=== PATIENT | male | born 1995 | race Caucasian/White ===

== ENCOUNTER 2019-03-25 19:34 | Emergency (ER) | payer OTHER ==
[~2019-03-25] VITALS: Ht 170.2 cm; Wt 68.0 kg
[2019-03-25 20:00] VITALS: BP 120/105
[2019-03-25] MEDS ORDERED: LORazepam Inj 2mg/ml 1ml IV ONE (20:00)
--- NOTE | 2019-03-25 20:00 | NUR ---
ED Nurse Note: Pt brought in by caregiver, per caregiver statement, pt was unresponsive in the back of the car, not sure if pt had seizure, increased lethargy and drowsy. pt currently AA&ox4, gcs=15, but noted drowsiness, pt diaphoretic and pale noted, pt denies using illecit drug but reports he is at sober living for heroin and meth, pt states he took gabapentin 800mg x 4 today around 2 pm. sinus tach and tachypnea noted, will notify ERMD. all safety precautions in place.
[2019-03-25 20:29] LABS: ANION GAP 10 mmol/L (5-15); BLOOD UREA NITROGEN 14 mg/dL (7-18); CALCIUM 9.4 MG/DL (8.5-10.1); CARBON DIOXIDE 28 MMOL/L (21-32); CHLORIDE 103 MMOL/L (98-107); POTASSIUM 4.2 MMOL/L (3.5-5.1); SODIUM 141 MMOL/L (136-145)
[2019-03-25 20:33] LABS: ALANINE AMINOTRANSFERASE 69 U/L (12-78); ALBUMIN 4.8 G/DL (3.4-5.0); ALBUMIN/GLOBULIN RATIO 1.7 (1.0-2.7); ALKALINE PHOSPHATASE 91 U/L (46-116); ASPARTATE AMINO TRANSFERASE 41 U/L (15-37); BILIRUBIN,TOTAL 0.4 MG/DL (0.2-1.0); CREATINE KINASE 160 U/L (26-308)
[2019-03-25 20:34] LABS: BASOPHILS % (AUTO) 0.7 % (0.0-2.0); EOSINOPHILS % (AUTO) 1.3 % (0.0-3.0); HEMOGLOBIN 14.8 G/DL (14.2-18.0); LYMPHOCYTES % (AUTO) 26.5 % (20.0-45.0); MEAN CORPUSCULAR VOLUME 86 FL (80-99); MONOCYTES % (AUTO) 6.4 % (1.0-10.0); NEUTROPHILS % (AUTO) 65.1 % (45.0-75.0); PLATELET COUNT 269 K/UL (150-450); RED BLOOD COUNT 5.02 M/UL (4.70-6.10); RED CELL DISTRIBUTION WIDTH 11.5 % (11.6-14.8); WHITE BLOOD COUNT 13.3 K/UL (4.8-10.8)
[2019-03-25 21:00] VITALS: BP 125/67
--- NOTE | 2019-03-25 21:01 | Emergency Room Report ---
History of Present Illness General Chief Complaint: General Complaint Source: Patient, Caregiver Present Illness HPI The patient was unresponsive in the back of a van. He is in a rehab program. He took 800 mg of gabapentin around 1 PM today. He was not trying to harm himself. He wanted to feel better because he feels bad as he is detoxing from heroin. He is in a rehab facility at this time. The person driving the vehicle question whether he might of had a seizure as he was unresponsive. The patient does not have a history of seizures. There is no incontinence. He had no lingual trauma. No fevers, chills, chest pain, palpitations, nausea, vomiting, diarrhea, dysuria , abdominal pain, shortness of breath, depression, visual changes, headache. Allergies: Coded Allergies: PENICILLINS (Verified Allergy, Unknown, 03/25/19) Patient History Past Medical History: see triage record Social History: Reports: smoking, drug use - Heroin Social History Narrative In rehab Reviewed Nursing Documentation: PMH: Agreed; PSxH: Agreed Review of Systems All Other Systems: negative except mentioned in HPI Physical Exam Vital Signs Date Time Temp Pulse Resp B/P (MAP) Pulse Ox O2 Delivery O2 Flow Rate FiO2 03/25/19 19:50 98.8 140 30 120/105 (110) 100 Room Air Sp02 EP Interpretation: reviewed, normal General Appearance: well appearing, no apparent distress, GCS 15 Head: normocephalic, atraumatic Eyes: bilateral eye PERRL, bilateral eye EOMI, bilateral eye Scleral Injection ENT: moist mucus membranes - No lingual macerations Neck: supple Respiratory: chest non-tender, lungs clear, normal breath sounds Cardiovascular #1: no edema, tachycardia Cardiovascular #2: 2+ radial (R) Gastrointestinal: normal inspection, normal bowel sounds, non tender, no mass, non-distended Musculoskeletal: back normal, gait/station normal, normal range of motion Neurologic: alert, oriented x3, motor strength/tone normal, DTRs symmetric, sensory intact, cerebellar normal, speech normal Psychiatric: no suicidal/homicidal ideation, depressed affect Skin: other - Tattoos Medical Decision Making Diagnostic Impression: Primary Impression: Medication excess Additional Impressions: History of heroin use Transient altered level of consciousness ER Course Patient presents with altered mentation. Differential includes seizure, excess medication, electrolyte imbalance, head trauma, withdrawal seizure amongst others. Evaluation with EKG, chest x-ray, CT of the head and labs. Initially Keppra was ordered however when it was determined the patient had ingested increased amounts of gabapentin this was held. The patient was given a small dose of Ativan. Seizure precautions were obtained. The patient was placed on a cardiac cath lab technologist. EKG without injury. CT of the head no lesions. Chest x-ray no infiltrates or aspiration. Labs with minimal leukocytosis. CMP and tox negative. Would expect bicarb to be low or other abnormal chem if sz. Patient improved with observation. Less tachycardic. Discussed findings with patient. No medical emergency present. Continue gabapentin. Patient stable for outpatient observation and treatment. Laboratory Tests Test 03/25/19 20:00 03/25/19 21:11 White Blood Count 13.3 K/UL (4.8-10.8) H Red Blood Count 5.02 M/UL (4.70-6.10) Hemoglobin 14.8 G/DL (14.2-18.0) Hematocrit 43.0 % (42.0-52.0) Mean Corpuscular Volume 86 FL (80-99) Mean Corpuscular Hemoglobin 29.4 PG (27.0-31.0) Mean Corpuscular Hemoglobin Concent 34.4 G/DL (32.0-36.0) Red Cell Distribution Width 11.5 % (11.6-14.8) L Platelet Count 269 K/UL (150-450) Mean Platelet Volume 6.2 FL (6.5-10.1) L Neutrophils (%) (Auto) 65.1 % (45.0-75.0) Lymphocytes (%) (Auto) 26.5 % (20.0-45.0) Monocytes (%) (Auto) 6.4 % (1.0-10.0) Eosinophils (%) (Auto) 1.3 % (0.0-3.0) Basophils (%) (Auto) 0.7 % (0.0-2.0) Sodium Level 141 MMOL/L (136-145) Potassium Level 4.2 MMOL/L (3.5-5.1) Chloride Level 103 MMOL/L (98-107) Carbon Dioxide Level 28 MMOL/L (21-32) Anion Gap 10 mmol/L (5-15) Blood Urea Nitrogen 14 mg/dL (7-18) Creatinine 1.0 MG/DL (0.55-1.30) Estimate Glomerular Filtration Rate > 60 mL/min (>60) Glucose Level 130 MG/DL (74-106) H Calcium Level 9.4 MG/DL (8.5-10.1) Total Bilirubin 0.4 MG/DL (0.2-1.0) Aspartate Amino Transferase (AST) 41 U/L (15-37) H Alanine Aminotransferase (ALT) 69 U/L (12-78) Alkaline Phosphatase 91 U/L (46-116) Total Creatine Kinase 160 U/L (26-308) Total Protein 7.6 G/DL (6.4-8.2) Albumin 4.8 G/DL (3.4-5.0) Globulin 2.8 g/dL Albumin/Globulin Ratio 1.7 (1.0-2.7) Salicylates Level 1.3 ug/mL (2.8-20) L Acetaminophen Level < 2 MCG/ML (10-30) L Serum Alcohol < 3 mg/dL Urine Color Yellow Urine Appearance Clear Urine pH 8 (4.5-8.0) Urine Specific [place] 1.010 (1.005-1.035) Urine Protein Negative (NEGATIVE) Urine Glucose (UA) Negative (NEGATIVE) Urine Ketones Negative (NEGATIVE) Urine Blood Negative (NEGATIVE) Urine Nitrite Positive (NEGATIVE) H Urine Bilirubin Negative (NEGATIVE) Urine Urobilinogen Normal MG/DL (0.0-1.0) Urine Leukocyte Esterase Negative (NEGATIVE) Urine RBC 0-2 /HPF (0 - 0) H Urine WBC 0-2 /HPF (0 - 0) Urine Squamous Epithelial Cells None /LPF (NONE/OCC) Urine Bacteria Few /HPF (NONE) Urine Opiates Screen Negative (NEGATIVE) Urine Barbiturates Screen Negative (NEGATIVE) Phencyclidine (PCP) Screen Negative (NEGATIVE) Urine Amphetamines Screen Negative (NEGATIVE) Urine Benzodiazepines Screen Negative (NEGATIVE) Urine Cocaine Screen Negative (NEGATIVE) Urine Marijuana (THC) Screen Negative (NEGATIVE) EKG Diagnostic Results Rate: tachycardiac Rhythm: NSR ST Segments: no acute changes Rhythm Strip Diag. Results EP Interpretation: yes Rhythm: no PVC's, no ectopy - Sinus tachycardia Chest X-Ray Diagnostic Results Chest X-Ray Diagnostic Results : Chest X-Ray Ordered: Yes # of Views/Limited/Complete: 1 View Indication: Other EP Interpretation: Yes Interpretation: no consolidation, no effusion, no pneumothorax Impression: No acute disease Electronically Signed by: Electronically signed by Jericho Henry MD CT/MRI/US Diagnostic Results CT/MRI/US Diagnostic Results : Imaging Test Ordered: head Impression no injury Last Vital Signs Date Time Temp Pulse Resp B/P (MAP) Pulse Ox O2 Delivery O2 Flow Rate FiO2 03/25/19 23:18 98.2 98 18 114/76 100 Room Air Status: improved Disposition: HOME, SELF-CARE - Rehab Condition: Improved Jericho Henry MD Mar 25, 2019 21:01
[2019-03-25 21:54] LABS: APPEARANCE,URINE CLEAR; BILIRUBIN, URINE NEGATIVE (NEGATIVE); GLUCOSE, URINE (UA) NEGATIVE (NEGATIVE); KETONES,URINE NEGATIVE (NEGATIVE); LEUKOCYTE ESTERASE ,URINE NEGATIVE (NEGATIVE); NITRITE,URINE POSITIVE (NEGATIVE); PH,URINE 8 (4.5-8.0); PROTEIN,URINE NEGATIVE (NEGATIVE); UROBILINOGEN,URINE NORMAL MG/DL (0.0-1.0)
[2019-03-25 21:57] LABS: COLOR,URINE YELLOW
[2019-03-25 22:00] VITALS: BP 115/86
--- NOTE | 2019-03-25 22:00 | NUR ---
ED Nurse Note: pt states he is missing phone and sae, friend michele contacted, states he has it and will bring it.
--- NOTE | 2019-03-25 23:00 | NUR ---
ED Nurse Note: pt states michele had his wallet and phone, noted pt w/ phone and wallet.
--- NOTE | 2019-03-25 23:16 | NUR ---
ED Nurse Note: pt cleared to be d/c per ERMD, pt discharge and aftercare instruction provided, pt advised to follow up with pcp or return to ed if changes in condition, pt advised to take medication as directed by pt's prescriber, pt verbalized understanding and agrees with plan, vss, ambulatory w/ steady gait, accompanied by friend, iv d/c and id band removed, left w/ all belongings.
[2019-03-25 23:18] VITALS: BP 114/76
--- NOTE | 2019-03-26 09:19 | Diagnostic Imaging Report ---
Indications: Seizure, dizziness, headache Technique: Spiral acquisitions obtained through the brain. Angled axial and coronal 5 x 5 mm slices were reconstructed. Total dose length product 1464.06 mGycm. CTDI vol(s) 70.38 mGy. Dose reduction achieved using automated exposure control Comparison: None. Findings: No acute intracranial hemorrhage or edema. No mass effect nor midline shift. Normal-sized ventricles and extra axial CSF spaces. Normal gage-white differentiation. Intact calvarium. Visualized orbits and sinuses are unremarkable. The mastoids are clear. Impression: Negative This agrees with the preliminary interpretation provided overnight by [facility] teleradiology service. The CT scanner at [facility] is accredited by the [employer] and the scans are performed using protocols designed to limit radiation exposure to as low as reasonably achievable to attain images of sufficient resolution adequate for diagnostic evaluation.
--- NOTE | 2019-03-26 11:15 | Diagnostic Imaging Report ---
Indication: Chest pain Technique: One view of the chest Comparison: none Findings: Lungs and pleural spaces are clear. Heart size is normal Impression: No acute process
--- NOTE | 2019-03-26 13:10 | Cardiology Report ---
APPROVED REPORT EKG Measurement Heart [id number] Sinus tachycardia Incomplete right bundle branch block Borderline ECG
== END 2019-03-25 23:26 | disposition home or self-care (01) ==
LOC: EMR 20:12
DX: R41.82 Altered mental status, unspecified (principal); F17.200 Nicotine dependence, unspecified, uncomplicated; Z88.0 Allergy status to penicillin; R00.0 Tachycardia, unspecified; T42.6X1A Poisoning by other antiepileptic and sedative-hypnotic drugs, accidental (unintentional), initial encounter; Y92.9 Unspecified place or not applicable
CPT/HCPCS: 36415; 70450; 71045; 80053; 80307; 80329; 81003; 82550; 85025; 93005; 96361; 96374; 99284